=== PATIENT | male | born 1985 | race Two or more races ===

== ENCOUNTER 2017-07-07 19:41 | Emergency (ER) | payer SELFPAY ==
[~2017-07-07] VITALS: Ht 167.6 cm; Wt 108.2 kg
[2017-07-08] MEDS ORDERED: ASPIRIN 81MG TABLET PO ONE (01:45)
[2017-07-08 02:12] LABS: BASOPHILS % 0.8 % (0.0-2.0); EOSINOPHILS % 0.6 % (0.0-5.0); HEMATOCRIT. 44.8 % (42.0-52.0); HEMOGLOBIN. 15.7 g/dL (14.0-18.0); MEAN CORPUSCULAR HEMOGLOBIN 29.3 pg (28.0-32.0); MEAN CORPUSCULAR VOLUME 83.7 fL (80.0-94.0); MEAN PLATELET VOLUME 7.4 fl (7.4-10.4); MONOCYTES % 7.2 % (2.0-8.0); NEUTROPHILS % 60.4 % (40.0-76.0); PLATELET 320 x1000/uL (130-400); RED BLOOD CELL COUNT 5.35 mill/uL (4.7-6.1); RED CELL DISTRIBUTION WIDTH 13.6 % (11.6-14.6)
[2017-07-08 02:20] LABS: PROTHROMBIN TIME 10.7 sec (9.4-11.6)
[2017-07-08 02:22] LABS: CHLORIDE 103 mEq/L (98-107)
[2017-07-08 02:28] LABS: TROPONIN I < 0.02 ng/mL (0.00-0.04)
[2017-07-08] MEDS ORDERED: KETOROLAC 30MG/ML VIAL IV ONE (02:45)
[2017-07-08 04:00] VITALS: BP 152/59
== END 2017-07-08 05:23 | disposition home or self-care (01) ==
LOC: ER 19:41
DX: M94.0 Chondrocostal junction syndrome [Tietze] (principal); R07.89 Other chest pain; Z79.82 Long term (current) use of aspirin; Z82.49 Family history of ischemic heart disease and other diseases of the circulatory system
CPT/HCPCS: 36415; 71045; 80053; 83880; 84484; 85025; 85610; 93005; 99285; J1885